=== PATIENT | male | born 1990 | race Two or more races ===

== ENCOUNTER 2021-09-02 13:43 | Emergency (ER) | payer OTHER ==
[~2021-09-02] VITALS: Ht 182.9 cm; Wt 85.7 kg
[2021-09-02 13:57] VITALS: BP 140/90
--- NOTE | 2021-09-02 14:05 | NUR ---
BIBS for c/o Recurrent rectal abcess; he had rectal abcess - 2 months ago - drained by myself. Rates retal pain 5/10. Will continue to monitor the patient.
[2021-09-02] MEDS ORDERED: CLIN300C12 PO (15:31)
[2021-09-02] MEDS ORDERED: TRIA15CR3 TP (15:31)
--- NOTE | 2021-09-02 15:41 | NUR ---
Patient discharged to home in stable condition. Written and verbal after care instructions given. Patient verbalizes understanding of instruction.
== END 2021-09-02 15:41 | disposition home or self-care (01) ==
LOC: ER 13:43
DX: L03.317 Cellulitis of buttock (principal); L02.31 Cutaneous abscess of buttock
CPT/HCPCS: 82962-TC